=== PATIENT | male | born 1985 | race Caucasian/White ===

== ENCOUNTER 2016-06-08 18:54 | Emergency (ER) | payer MEDICAID, OTHER ==
[~2016-06-08] VITALS: Ht 193 cm; Wt 108.9 kg
[2016-06-08 19:26] VITALS: BP 133/89; PULSE 120; RESP 16; TEMP 97; O2SAT 98
--- NOTE | 2016-06-08 19:30 | NUR ---
Patient triaged and placed in waiting room. Patient appears in no acute distress at this time. Accompanied by SELFS, awaiting available bed, and MD notified of need for MSE.
== END 2016-06-08 19:30 | disposition left against medical advice (07) ==
LOC: SED 18:54
DX: R19.7 Diarrhea, unspecified (principal); R11.0 Nausea; K08.89 Other specified disorders of teeth and supporting structures; Z53.21 Procedure and treatment not carried out due to patient leaving prior to being seen by health care provider